=== PATIENT | male | born 1950 | race African-American/Black ===

== ENCOUNTER 2017-08-19 10:00 | Outpatient (RCR) | payer MEDICARE | END 2017-08-25 | disposition home or self-care (01) | LOC: PTY 10:00 | DX: S46.001D Unspecified injury of muscle(s) and tendon(s) of the rotator cuff of right shoulder, subsequent encounter (principal) | CPT/HCPCS: 97110; 97161; G8984; G8985 ==

== ENCOUNTER 2017-08-26 10:18 | Outpatient (RCR) | payer MEDICARE | END 2017-09-25 | disposition home or self-care (01) | LOC: PTY 10:18 | DX: M75.111 Incomplete rotator cuff tear or rupture of right shoulder, not specified as traumatic (principal); I69.851 Hemiplegia and hemiparesis following other cerebrovascular disease affecting right dominant side; E11.9 Type 2 diabetes mellitus without complications; I10 Essential (primary) hypertension; M19.90 Unspecified osteoarthritis, unspecified site | CPT/HCPCS: 92507; 92610; 97110; 97140; G8999; G9186 ==

== ENCOUNTER 2017-10-26 09:10 | Outpatient (RCR) | payer MEDICARE | END 2017-11-25 | disposition home or self-care (01) | LOC: PTY 09:10 | DX: M75.111 Incomplete rotator cuff tear or rupture of right shoulder, not specified as traumatic (principal); I10 Essential (primary) hypertension; E11.9 Type 2 diabetes mellitus without complications; M19.90 Unspecified osteoarthritis, unspecified site; Z86.73 Personal history of transient ischemic attack (TIA), and cerebral infarction without residual deficits ==